=== PATIENT | male | born 1995 ===

== ENCOUNTER 2017-02-27 11:21 | Emergency (ER) | payer OTHER ==
[~2017-02-27] VITALS: Ht 180.3 cm; Wt 102.0 kg
[2017-02-27 11:25] VITALS: Ht 180.3 cm; Wt 102.0 kg
[2017-02-27] MEDS ORDERED: HYDROCODONE/APAP (10/325) TAB PO ONE (12:30)
--- NOTE | 2017-02-27 13:09 | RADRPT ---
PROCEDURE: XR Left Ankle CLINICAL INDICATION: Injury TECHNIQUE: Standard 3 view radiographs were submitted. COMPARISON: None FINDINGS: Osseous structures: There is an oblique comminuted fracture of the distal left fibular diaphysis wit hout significant displacement. A corticated ossification is seen at the tip of the lateral malleolu s which may be a sequelae of old trauma. There is a small spur off the medial malleolar tip. There is a irregularity to the cortex of the posterior malleolus along with a corticated ossification susp icious for a sequelae of previous trauma. Joint spaces: There is widening of the medial aspect of the ankle mortise. Soft tissues: Soft tissue swelling is seen medially. IMPRESSION: 1. Comminuted oblique fracture involving the distal left fibular shaft compatible with an acute non displaced fracture. 2. Corticated ossification seen at the tip the lateral malleolus which may be a sequelae of old tra baylee. 3. Corticated ossification at the posterior malleolus along with slight irregularity to the cortex suspicious for a sequelae of previous trauma. 4. Widening of the medial ankle mortise suspicious for ligamentous injury with medial soft tissue s welling. Physician Lety Date Time Electronically viewed and signed by Physician Lety on 02/27/2017 13:09 /
--- NOTE | 2017-02-27 13:11 | RADRPT ---
PROCEDURE: XR Left Foot CLINICAL INDICATION: Injury TECHNIQUE: AP, oblique, and lateral radiographs were submitted. COMPARISON: None FINDINGS: Osseous structures: There is a comminuted nondisplaced fracture of the distal fibular shaft. There is a corticated ossification at the posterior malleolus with slight irregularity to the posterior co rtex compatible with a sequelae of previous trauma. The remaining osseous elements appear intact. Joint spaces: There is widening of the anterior tibial talar joint while the remaining joint spaces are well maintained. Soft tissues: There is mild soft tissue swelling seen about the medial talar region. IMPRESSION: 1. Comminuted oblique nondisplaced fracture involving the distal left fibular shaft. 2. Old appearing avulsion at the posterior malleolus. 3. Widening of the anterior tibial talar joint 4. Soft tissue swelling seen about the hind foot medially. Physician Lety Date Time Electronically viewed and signed by Physician Lety on 02/27/2017 13:11 /
[2017-02-27] MEDS ORDERED: IBUP800T25 PO (14:42)
[2017-02-27] MEDS ORDERED: HYDR-906 PO (14:42)
[2017-02-27 15:08] VITALS: BP 118/67; PULSE 69; RESP 19; TEMP 98.3
--- NOTE | 2017-02-27 16:41 | ERD ---
ER Documentation Chief Complaint Date/Time DATE: 02/27/17 TIME: 16:36 Chief Complaint left ankle injury after a fall at work no ko HPI 21-year-old male with no significant past medical history presents the ED complaining of a left ankle injury that occurred earlier today at work. Reports that he was at a worksite and walking downhill and landed on his left ankle, 3 feet above ground. Ports that the pain radiates up towards his left leg. Describes it as a sharp sensation and rates it a 10 out of 10. Denies any abdominal pain, nausea, vomiting, headache, neck pain. Denies any loss of consciousness. States that he is unable to ambulate. ROS All systems reviewed and are negative except as per history of present illness. Medications Home Meds Active Scripts Ibuprofen* (Motrin*) 800 Mg Tab, 800 MG PO Q6, #30 TAB Prov:CRISTINA HERNADEZ PA-C 02/27/17 Hydrocodone/Acetaminophen (Lakemore 5-325 Tablet) 1 Each Tablet, 1 TAB PO Q6H Y for PAIN, #7 TAB Prov:CRISTINA HERNADEZ PA-C 02/27/17 Allergies Allergies: Coded Allergies: No Known Allergy (Unverified , 02/27/17) PMhx/Soc Medical and Surgical Hx: pt denies Medical Hx, pt denies Surgical Hx Hx Alcohol Use: Yes Hx Substance Use: No Hx Tobacco Use: Yes Smoking Status: Current every day smoker Physical Exam Vitals Vital Signs Date Time Temp Pulse Resp B/P Pulse Ox O2 Delivery O2 Flow Rate FiO2 02/27/17 15:08 98.3 69 19 118/67 100 Room Air 02/27/17 11:25 98.1 97 20 166/88 99 Physical Exam Const: [id number], well-nourished. In no acute distress. Head: Atraumatic, normocephalic Eyes: Normal Conjunctiva without injection ENT: Normal external ear, nose and mouth. Neck: Full range of motion. No meningismus. Resp: Clear to auscultation bilaterally. No wheezing, rhonchi, rales, or crackles. No accessory muscle use. No retractions. Cardio: Regular rate and rhythm, no murmurs Skin: No petechiae or rashes Back: No midline tenderness. No CVA tenderness. Ext: No cyanosis, or edema. Cap refill less than 2 seconds. Distal pulses intact bilaterally. Edema noted over the medial malleolus. Tenderness to palpation of the medial malleolus and distal fibula. Slightly warm to touch and erythematous. Limited range of motion due to pain. Neur: Awake and alert. Patient is unable to ambulate here in the ED due to his left ankle pain. Left ankle is limited with muscle strength due to the pain. Sensation intact bilaterally. Psych: Normal Mood and Affect Results 24 hrs Current Medications Medications (Trade) Dose Ordered Sig/Jerardo Route PRN Reason Start Time Stop Time Status Last Admin Dose Admin Acetaminophen/ Hydrocodone Bitart (Lakemore (30)) 1 tab ONCE ONCE PO 02/27/17 12:30 02/27/17 12:31 DC 02/27/17 12:13 Procedures/MDM This is a 21-year-old male with no significant past medical history presents the ED complaining of a left ankle injury that occurred at work. Patient is afebrile nontoxic appearing. Patient has normal vital signs. A left ankle and foot x-ray was ordered to further evaluate patient based on auto was ankles roll. Patient is unable to ambulate and has tenderness to palpation of the medial malleolus and distal fifth metatarsal. PROCEDURE: XR Left Ankle CLINICAL INDICATION: Injury TECHNIQUE: Standard 3 view radiographs were submitted. COMPARISON: None FINDINGS: Osseous structures: There is an oblique comminuted fracture of the distal left fibular diaphysis without significant displacement. A corticated ossification is seen at the tip of the lateral malleolus which may be a sequelae of old trauma. There is a small spur off the medial malleolar tip. There is a irregularity to the cortex of the posterior malleolus along with a corticated ossification suspicious for a sequelae of previous trauma. Joint spaces: There is widening of the medial aspect of the ankle mortise. Soft tissues: Soft tissue swelling is seen medially. IMPRESSION: 1. Comminuted oblique fracture involving the distal left fibular shaft compatible with an acute nondisplaced fracture. 2. Corticated ossification seen at the tip the lateral malleolus which may be a sequelae of old trauma. 3. Corticated ossification at the posterior malleolus along with slight irregularity to the cortex suspicious for a sequelae of previous trauma. 4. Widening of the medial ankle mortise suspicious for ligamentous injury with medial soft tissue swelling. PROCEDURE: XR Left Foot CLINICAL INDICATION: Injury TECHNIQUE: AP, oblique, and lateral radiographs were submitted. COMPARISON: None FINDINGS: Osseous structures: There is a comminuted nondisplaced fracture of the distal fibular shaft. There is a corticated ossification at the posterior malleolus with slight irregularity to the posterior cortex compatible with a sequelae of previous trauma. The remaining osseous elements appear intact. Joint spaces: There is widening of the anterior tibial talar joint while the remaining joint spaces are well maintained. Soft tissues: There is mild soft tissue swelling seen about the medial talar region. IMPRESSION: 1. Comminuted oblique nondisplaced fracture involving the distal left fibular shaft. 2. Old appearing avulsion at the posterior malleolus. 3. Widening of the anterior tibial talar joint 4. Soft tissue swelling seen about the hind foot medially. Patient is placed in a stirrup splint. Crutches were given to patient to help with ambulation. Splint Assessment: Neurovascularly intact pre and post splint placement with good fit. Patient sustained a comminuted oblique nondisplaced fracture involving the distal left fibular shaft. The widening of the medial ankle more T suspicious for ligament injury was discussed with my supervising physician, Dr. Rudy oviedo. We both agreed to consult Dr. Elizabeth Cagle stated that patient can be managed on outpatient basis at his clinic. Patient's extremity symptoms have stabilized while they have been evaluated in the department and are appropriate for outpatient follow up. No evidence of fractures, dislocations , compartment syndrome, neurologic injury, vascular injury, open joint, open fracture, tendon laceration, septic arthritis, osteomyelitis, DVT, foreign body , or other emergent conditions. Discharge medications: Ibuprofen, Lakemore Follow up with primary care physician in 1-2 days. Instructed patient to return to the ED sooner for any worsening symptoms. Patient's questions were answered. Patient understood and agreed with discharge plan. Patient discharged stable. Departure Diagnosis: Primary Impression: Ankle fracture, left Encounter type: initial encounter Fracture type: closed Qualified Code: S82.892A - Ankle fracture, left, closed, initial encounter Condition: Stable Patient Instructions: Ankle Fracture (Distal Fibula), Closed Referrals: ALBERT CAGLE MD [facility] YOU HAVE RECEIVED A MEDICAL SCREENING EXAM AND THE RESULTS INDICATE THAT YOU DO NOT HAVE A CONDITION THAT REQUIRES URGENT TREATMENT IN THE EMERGENCY DEPARTMENT. FURTHER EVALUATION AND TREATMENT OF YOUR CONDITION CAN WAIT UNTIL YOU ARE SEEN IN YOUR DOCTORS OFFICE WITHIN THE NEXT 1-2 DAYS. IT IS YOUR RESPONSIBILITY TO MAKE AN APPOINTMENT FOR FOLOW-UP CARE. IF YOU HAVE A PRIMARY DOCTOR --you should call your primary doctor and schedule an appointment IF YOU DO NOT HAVE A PRIMARY DOCTOR YOU CAN CALL OUR PHYSICIAN REFERRAL HOTLINE AT IF YOU CAN NOT AFFORD TO SEE A PHYSICIAN YOU CAN CHOSE FROM THE FOLLOWING [facility] [address] [facility] [address] [facility]. [facility] [address] [facility] [address] [facility] [address] [facility]. [facility] [address] [facility]. [facility] YOU HAVE RECEIVED A MEDICAL SCREENING EXAM AND THE RESULTS INDICATE THAT YOU DO NOT HAVE A CONDITION THAT REQUIRES URGENT TREATMENT IN THE EMERGENCY DEPARTMENT. FURTHER EVALUATION AND TREATMENT OF YOUR CONDITION CAN WAIT UNTIL YOU ARE SEEN IN YOUR DOCTORS OFFICE WITHIN THE NEXT 1-2 DAYS. IT IS YOUR RESPONSIBILITY TO MAKE AN APPOINTMENT FOR FOLOW-UP CARE. IF YOU HAVE A PRIMARY DOCTOR --you should call your primary doctor and schedule and appointment IF YOU DO NOT HAVE A PRIMARY DOCTOR YOU CAN CALL OUR PHYSICIAN REFERRAL HOTLINE AT . IF YOU CAN NOT AFFORD TO SEE A PHYSICIAN YOU CAN CHOSE FROM THE FOLLOWING [facility]: [facility] [address] [place] [address] [facility] [address] [place] [address] [facility] [address] [place] [address] [facility] Urgent Care 7 a.m.- 11 p.m. Every Day of the Week NO APPOINTMENT OR AUTHORIZATION NEEDED SO [facility] Hours: Mon-Fri 9:00 AM - 5:00 PM Additional Instructions: FOLLOW UP Dr. Cagle, orthopedic doctor on March 05, 2017. Call Dr. Cagle's office today for an appointment for March 05, 2017.Return to this facility if you are not improving as expected. CRISTINA HERNADEZ PA-C Feb 27, 2017 16:41
--- NOTE | 2017-03-01 12:00 | CONS ---
DATE OF ADMISSION: 02/27/2017 DATE OF CONSULTATION: 02/27/2017 CHIEF COMPLAINT: Left ankle pain. HISTORY OF PRESENT ILLNESS: This is a 21-year-old male who sustained an injury to his left ankle. He was unable to ambulate. He was brought into the emergency department by his mother. He denies a ny loss of consciousness. He denies any weakness. He has no other complaints. PAST MEDICAL HISTORY: None. PAST SURGICAL HISTORY: None. SOCIAL HISTORY: He denies current tobacco, alcohol or drug use. FAMILY HISTORY: Noncontributory. ALLERGIES: NO KNOWN DRUG ALLERGIES. PHYSICAL EXAMINATION: GENERAL: The patient is comfortable, in no acute distress. REVIEW OF SYSTEMS: Negative except per HPI. LEFT LOWER EXTREMITY: There are no open wounds. There is no deformity. He is tender to palpation over the lateral malleoli. He is nontender over the medial malleoli. He is neurovascularly intact in distribution of sural, saphenous and peroneal nerves. He has a palpable dorsalis pedis pulse. X-RAY, LEFT ANKLE: There is widening of the medial joint line. There are no fractures of the media l malleolus. There is no dislocation noted. A 21-year-old male with a left ankle injury with x-rays consistent with syndesmotic injury. PLAN: Patient had a closed reduction performed in the ER with application of a splint. He will be nonweightbearing. He will follow up within 2 weeks. Dictated By: ALBERT BRITTON/MAIDA Conf#: [id number] DID#: [id number]
== END 2017-02-27 15:10 | disposition home or self-care (01) ==
LOC: FTE 11:21
DX: S82.455A Nondisplaced comminuted fracture of shaft of left fibula, initial encounter for closed fracture (principal); S82.435A Nondisplaced oblique fracture of shaft of left fibula, initial encounter for closed fracture; F17.210 Nicotine dependence, cigarettes, uncomplicated; W17.89XA Other fall from one level to another, initial encounter; Y92.89 Other specified places as the place of occurrence of the external cause
CPT/HCPCS: 73610